=== PATIENT | male | born 1980 | race African-American/Black ===

== ENCOUNTER 2025-03-31 21:04 | Emergency (ER) | payer BC ==
[~2025-03-31] VITALS: Ht 177.8 cm; Wt 79.4 kg
[2025-03-31 23:02] VITALS: BP 131/88; TEMP 98.3
[2025-03-31] MEDS ORDERED: AMOX-430 PO (23:10)
[2025-03-31] MEDS ORDERED: TDAP [DIPH/PERTUSSIS/TET] 0.5 ML VIAL IM ONE (23:28)
[2025-03-31] MEDS ORDERED: AMOX/CLAVULANATE 875 MG TABLET ONE (23:28)
[2025-03-31] MEDS: TDAP [DIPH/PERTUSSIS/TET] 0.5 ML VIAL IM ONE (23:32)
[2025-03-31] MEDS: AMOX/CLAVULANATE 875 MG TABLET PO ONE (23:32)
[2025-03-31 23:55] VITALS: O2SAT 95
== END 2025-04-01 00:20 | disposition home or self-care (01) ==
LOC: ER 21:19
DX: S91.331A Puncture wound without foreign body, right foot, initial encounter (principal); W52.XXXA Crushed, pushed or stepped on by crowd or human stampede, initial encounter; Y93.89 Activity, other specified; Y92.89 Other specified places as the place of occurrence of the external cause; Y99.8 Other external cause status
CPT/HCPCS: 90715